=== PATIENT | male | born 1935 | race Caucasian/White ===

== ENCOUNTER 2023-03-30 09:21 | Emergency (ER) | payer MEDICARE, SELFPAY ==
--- NOTE | 2023-03-30 09:22 | DI.RAD.S_ITS ---
PROCEDURE: XR HIP W PEL IF DONE RT 2V INDICATIONS: Months of right hip pain TECHNIQUE: AP pelvis with lateral view(s) of the right hip(s). COMPARISON: None. FINDINGS: Bones: Asymmetric moderate right hip joint osteoarthritic changes are seen with superior joint space narrowing, subchondral sclerosis and marginal osteophyte formation. No fractures or dislocations. Pelvic ring appears intact. No suspicious bony lesions. Soft tissues: The visualized bowel gas pattern is normal. No suspicious soft tissue calcifications. IMPRESSION: Asymmetric moderate right hip joint osteoarthritis. No pelvic or hip fracture. No evidence of avascular necrosis. Dictated by: Juan Pablo Valerio M.D. on 03/30/2023 at 10:01 Approved by: Juan Pablo Valerio M.D. on 03/30/2023 at 10:01
[2023-03-30 09:24] VITALS: BP 204/91; PULSE 71; RESP 18; O2SAT 95; BMI 31.6
--- NOTE | 2023-03-30 09:45 | ED.LOWEXIN ---
HPI - Extremity Injury (Lower) General Chief Complaint: Extremity Injury, Lower Stated Complaint: Right Hip Pain Time Seen by Provider: 03/30/23 09:22 Source: patient Mode of arrival: EMS History of Present Illness HPI Narrative: Patient is an 79-year-old male. Has had a longstanding history of arthritis in his right hip. He states that it is in his right hip back near the back bone which I suspect he would his meeting the SI joint. He normally is able to ambulate. Two days ago he states he woke up with severe pain. He thinks that it is in the same location but it is much worse than what it has been. He is not fallen. As the day went on things did seem to improve and he was able to walk with a walker. He thought things were back to normal but then overnight the symptoms came back again. No problems urinating. No fevers. No abdominal pain. No radicular symptoms down into his right lower extremity. No knee pain or ankle pain. Related Data Previous Rx's Medication Instructions Recorded hydrocodone 5 mg-acetaminophen 325 1 tab PO Q4-6H PRN pain #14 tabs 03/30/23 mg tablet Allergies Allergy/AdvReac Type Severity Reaction Status Date / Time No Known Drug Allergies Allergy Verified 03/30/23 09:24 Review of Systems Constitutional Constitutional: Reports system reviewed and no additional complaints, except as documented Musculoskeletal Musculoskeletal: Reports system reviewed and no additional complaints, except as documented Integumentary/Breasts Skin/Breast: Reports system reviewed and no additional complaints, except as documented Neurologic Neurologic: Reports system reviewed and no additional complaints, except as documented Patient History Social History Smoking Status: Former smoker Smoking Status: Former smoker Substance Use Type: does not use Exam Initial Vital Signs Initial Vital Signs: Vital Signs Pulse Rate 71 03/30/23 09:24 Respiratory Rate 18 03/30/23 09:24 Blood Pressure 204/91 H 03/30/23 09:24 Pulse Oximetry 95 03/30/23 09:24 Oxygen Delivery Method Room Air 03/30/23 09:[address] [facility] Head: normal to inspection and normocephalic Back/Spine/Pelvis Other: Discomfort along SI joint on right Neuro Sensory Exam: no sensory deficits noted Extrem Other: No groin tenderness. No tenderness along the greater trochanter. Course Orders Ordered: ED Orders 03/30/23 09:22 XR hip w pel if done RT 2V Stat Vital Signs Vital signs: Vital Signs - 8 hr 03/30/23 09:24 Pulse Rate 71 Respiratory Rate 18 Blood Pressure 204/91 H Pulse Oximetry 95 Oxygen Delivery Method Room Air MDM - Extremity Injury (Lower) Imaging Data Extremity x-ray #1: Radiologist's Impression: PROCEDURE:? XR HIP W PEL IF DONE RT 2V ? INDICATIONS:? Months of right hip pain ? TECHNIQUE:? AP pelvis with lateral view(s) of the right hip(s).? ? COMPARISON:? None. ? FINDINGS:? ? Bones:? Asymmetric moderate right hip joint osteoarthritic changes are seen with superior joint space narrowing, subchondral sclerosis and marginal osteophyte formation.? No fractures or dislocations.? Pelvic ring appears intact.? No suspicious bony lesions.? ? Soft tissues:? The visualized bowel gas pattern is normal.? No suspicious soft tissue calcifications.? ? ? IMPRESSION:? Asymmetric moderate right hip joint osteoarthritis.? No pelvic or hip fracture.? No evidence of avascular necrosis. [facility] Narrative Medical decision making narrative: X-ray does show arthritis but no fracture. Low suspicion for cauda equina. Patient has been ambulatory as he states that most of his symptoms have been worse in the morning. No further workup required in the emergency department. Will discharge home with pain medication. He understands this can make him drowsy and he does need to be careful. Will have him contact his primary doctor for a follow-up. Discharge Plan Departure Patient Disposition: Home Clinical Impression: Acute pain of right hip Instructions: DI for Hip Pain Activity Restrictions/Additional Instructions: There were no fractures noted on the x-rays. You do have arthritis in your right hip. Your most likely going to need a follow-up with your primary doctor when you return home. Return to the emergency department for new or worsening symptoms. Prescriptions: New hydrocodone-acetaminophen 5-325 mg tablet 1 tab PO Q4-6H PRN (Reason: pain) Qty: 14 0RF Stand Alone Forms: Patient Portal/API
[2023-03-30] MEDS: HYDROCODONE/ACET 5/325 TABLET 1 TAB PO (10:32)
[2023-03-30 10:33] VITALS: BP 167/78; PULSE 57; RESP 18; O2SAT 96
== END 2023-03-30 10:42 | disposition home or self-care (01) ==
PROVIDERS: Emergency Provider Emergency Medicine
DX: M25.551 Pain in right hip (principal)
CPT/HCPCS: 73502; 99283